=== PATIENT | male | born 1950 ===

== ENCOUNTER 2023-05-27 07:20 | Outpatient (CLI) | payer OTHER ==
--- NOTE | 2023-05-27 15:14 | Ultrasound Report ---
PROCEDURE: Aorta Screening INDICATIONS: HIST OF SMOKING TECHNIQUE: Real time scanning was performed of the aorta and iliac arteries, with image documentatio n. COMPARISON: None. FINDINGS: Aorta: Proximal aortic diameter measures 2.9 x 2.1 cm. Mid-aorta measures 2.6 x 2.1 cm. Distal aor tic diameter is 2.3 x 2.1 cm. Iliac arteries: Right common iliac artery measures 1.6 x 1.3 cm. Left common iliac artery measures 1.3 x 1.3 cm. IMPRESSION: No abdominal aortic aneurysm. 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 Reviewed by: Adrián Wagner MD on 05/27/2023 3:12 PM PDT Approved by: Adrián Wagner MD on 05/27/2023 3:12 PM PDT Station ID: [id number]
== END 2023-05-27 07:21 | disposition home or self-care (01) ==
LOC: DI 07:20
PROVIDERS: ATTEND Nurse Practitioner Family
DX: Z13.6 Encounter for screening for cardiovascular disorders (principal); Z87.891 Personal history of nicotine dependence; I77.811 Abdominal aortic ectasia